=== PATIENT | female | born 1955 | race Caucasian/White ===

== ENCOUNTER 2018-07-22 12:35 | Inpatient (IN) | payer MEDICAID ==
[~2018-07-22] VITALS: Ht 165.1 cm; Wt 90.6 kg
[2018-07-22] MEDS ORDERED: LORazepam 1MG TABLET PO ONE (13:00)
[2018-07-22] MEDS ORDERED: SODIUM CHLORIDE FLUSH 10ML SYR IVF ONE (13:00)
[2018-07-22 13:47] LABS: MEAN CORPUSCULAR HEMOGLOBIN 21.9 pg (27.0-34.8); MEAN CORPUSCULAR VOLUME 70.7 fL (80-100); PLATELET COUNT 341 x10^3/uL (130-400); RED BLOOD COUNT 4.25 x10^6/uL (3.82-5.3); RED CELL DISTRIBUTION WIDTH 22.7 % (9.6-15.2)
[2018-07-22 13:50] LABS: ANION GAP 8 mmol/L (5-15); CALCIUM 8.1 mg/dL (8.5-10.1); CHLORIDE 108 mmol/L (98-107); SALICYLATE LEVEL < 1.7 mg/dL (2.8-20.0)
[2018-07-22] MEDS ORDERED: LORazepam 1MG TABLET ONE (13:58)
[2018-07-22 13:59] LABS: ACETAMINOPHEN < 2 mcg/mL (10-30); ALANINE AMINOTRANSFERASE 52 U/L (12-78); ALKALINE PHOSPHATASE 107 U/L (45-117); BILIRUBIN,TOTAL 1.6 mg/dL (0.2-1.0); CREATININE 0.87 mg/dL (0.55-1.02); TOTAL PROTEIN 6.1 g/dL (6.4-8.2)
--- NOTE | 2018-07-22 14:03 | NUR ---
FAMILY AT BEDSIDE. ASSISTED TO COMMODE
--- NOTE | 2018-07-22 14:10 | NUR ---
pt provided lunch tray. sitting on commode with chair down to eat off [employer]. family remain at bedside with call light
[2018-07-22 14:15] LABS: BASOPHILS # (AUTO) 0.01 x10^3/uL (0-0.1); BASOPHILS % (AUTO) 0 % (0-1); EOSINOPHILS % (AUTO) 1 % (1-7); LYMPHOCYTES # (AUTO) 0.89 x10^3/uL (1-3.4); LYMPHOCYTES % (AUTO) 9 % (22-44); MD MORPH REVIEW ONLY; MONOCYTES # (AUTO) 1.04 x10^3/uL (0.2-0.8); MONOCYTES % (AUTO) 11 % (2-9); NEUTROPHILS # (AUTO) 7.37 x10^3/uL (1.8-6.8); NEUTROPHILS % (AUTO) 78 % (42-75)
[2018-07-22 14:17] LABS: ANISOCYTOSIS 1+
[2018-07-22 14:18] LABS: OVALOCYTES 1+; POLYCHROMASIA 1+
[2018-07-22 14:19] LABS: HYPOCHROMIA 1+
[2018-07-22 14:20] LABS: <PLATELET ESTIMATE> ADEQUATE; <PLT MORPHOLOGY> NORMAL PLT MORPH
[2018-07-22 14:21] LABS: SCHISTOCYTES 1+
[2018-07-22 14:35] LABS: TROPONIN I 0.023 ng/mL (0.000-0.045)
[2018-07-22 14:55] LABS: MICROSCOPIC NOT IND
[2018-07-22 14:57] LABS: CULTURE INDICATED? NO
--- NOTE | 2018-07-22 15:00 | NUR ---
BREAK RN: PT TAKEN TO CT AT THIS TIME.
[2018-07-22 15:06] LABS: AMPHETAMINE SCREEN, URINE Positive (Negative); BARBITURATE SCREEN, URINE Negative (Negative); BENZODIAZEPINE SCREEN, URINE Negative (Negative); CANNABINOID SCREEN, URINE Negative (Negative); COCAINE SCREEN, URINE Negative (Negative); METHADONE SCREEN, URINE Negative (Negative); OPIATE SCREEN, URINE Negative (Negative)
[2018-07-22] MEDS ORDERED: LORazepam 2 MG/ML, 1ML IVPush ONE (16:00)
[2018-07-22] MEDS ORDERED: KETOROLAC 30 MG/1 ML IVPush ONE (16:00)
--- NOTE | 2018-07-22 16:13 | NUR ---
HOSPITALIST AT BEDSIDE EXAMINING PT. PT SITTING IN CHAIR AT THIS TIME
[2018-07-22] MEDS ORDERED: OXYcodone IR 5MG TABLET PO PRN (16:30)
[2018-07-22] MEDS ORDERED: GABAPENTIN 300 MG CAPSULE PO PRN (16:30)
[2018-07-22] MEDS: LIDODERM 5% PATCH TD SCH (16:30)
[2018-07-22] MEDS ORDERED: morphine SULFATE 10 MG/ML, 1ML IVPush PRN (16:30)
[2018-07-22] MEDS ORDERED: LORazepam 2 MG/ML, 1ML IVPush PRN (16:30)
[2018-07-22] MEDS ORDERED: KETOROLAC 30 MG/1 ML ONE (16:41)
[2018-07-22] MEDS ORDERED: ENOXAPARIN 40 MG/0.4 ML ONE (16:41)
[2018-07-22] MEDS ORDERED: FUROSEMIDE 40 MG/4 ML ONE (16:41)
[2018-07-22] MEDS ORDERED: LIDODERM 5% PATCH TD ONE (16:41)
[2018-07-22] MEDS ORDERED: LORazepam 2 MG/ML, 1ML ONE (16:42)
[2018-07-22] MEDS: FUROSEMIDE 40 MG/4 ML IV SCH (16:56)
[2018-07-22] MEDS: ENOXAPARIN 40 MG/0.4 ML SQ SCH (17:02)
--- NOTE | 2018-07-22 17:05 | NUR ---
SECURITY AT BEDSIDE TO BE SITTING WITH PT. PT LYING IN GURNEY ON RIGHT SIDE. MEDICATED PER ORDERS FOR PAIN.
[2018-07-22 17:17] LABS: TROPONIN I 0.028 ng/mL (0.000-0.045)
[2018-07-22] MEDS ORDERED: METOPROLOL TARTRATE 50 MG TABLET PO SCH (18:00)
[2018-07-22 18:14] VITALS: BP 102/69
[2018-07-22] MEDS ORDERED: LISI-167 PO (18:21)
[2018-07-22] MEDS ORDERED: FURO40TA6 PO (18:21)
[2018-07-22] MEDS ORDERED: SPIR25TA PO (18:21)
[2018-07-22] MEDS ORDERED: POTA20TA14 PO (18:21)
[2018-07-22] MEDS ORDERED: METO-93 PO (18:22)
[2018-07-22 18:38] VITALS: BP 100/69
[2018-07-22 19:46] LABS: TROPONIN I 0.025 ng/mL (0.000-0.045)
[2018-07-23] VITALS: BP 108/62
[2018-07-23 05:16] LABS: ANION GAP 8 mmol/L (5-15); CALCIUM 7.8 mg/dL (8.5-10.1); CHLORIDE 107 mmol/L (98-107); CREATININE 0.71 mg/dL (0.55-1.02)
[2018-07-23 05:24] LABS: MEAN CORPUSCULAR HEMOGLOBIN 21.8 pg (27.0-34.8); MEAN CORPUSCULAR HGB CONC 31.2 g/dL (32.4-35.8); MEAN CORPUSCULAR VOLUME 69.8 fL (80-100); MEAN PLATELET VOLUME 8.1 fL (7.4-10.4); PLATELET COUNT 299 x10^3/uL (130-400); RED BLOOD COUNT 3.92 x10^6/uL (3.82-5.3); RED CELL DISTRIBUTION WIDTH 22.2 % (9.6-15.2)
[2018-07-23] MEDS ORDERED: METOPROLOL SUCCINATE 50 MG TAB.ER.24H PO SCH (06:00)
[2018-07-23 06:03] LABS: BASOPHILS # (AUTO) 0.03 x10^3/uL (0-0.1); BASOPHILS % (AUTO) 0 % (0-1); EOSINOPHILS % (AUTO) 2 % (1-7); LYMPHOCYTES # (AUTO) 1.49 x10^3/uL (1-3.4); LYMPHOCYTES % (AUTO) 17 % (22-44); MD SCAN; MONOCYTES % (AUTO) 13 % (2-9); NEUTROPHILS # (AUTO) 5.91 x10^3/uL (1.8-6.8); NEUTROPHILS % (AUTO) 68 % (42-75)
[2018-07-23 06:50] VITALS: BP 112/78
[2018-07-23] MEDS: FUROSEMIDE 40 MG/4 ML IV SCH ×2 (08:33→17:42)
[2018-07-23] MEDS: ACETAMINOPHEN 325 MG TABLET PO PRN ×3 (08:35→13:04)
[2018-07-23] MEDS: SPIRONOLACTONE 25 MG TABLET PO SCH (08:59)
[2018-07-23] MEDS: IRON SUCROSE COMPLEX 100MG/5ML IV SCH (10:29)
[2018-07-23 12:00] VITALS: BP 96/64
[2018-07-23] MEDS: LIDODERM 5% PATCH TD SCH (17:42)
[2018-07-23] MEDS: ENOXAPARIN 40 MG/0.4 ML SQ SCH (17:42)
[2018-07-23 17:48] VITALS: BP 100/69
[2018-07-23] MEDS: KETOROLAC 30 MG/1 ML IVPush PRN (17:53)
[2018-07-23 20:21] VITALS: BP 91/63
[2018-07-23] MEDS: CALCIUM CARBONATE 500 MG TAB.CHEW PO PRN (23:52)
[2018-07-24 03:59] VITALS: BP 93/61
[2018-07-24] MEDS ORDERED: LIDODERM REMOVE PATCH NOTE XX SCH (04:30)
[2018-07-24] MEDS: LIDODERM REMOVE PATCH NOTE XX SCH ×2 (04:30→14:48)
[2018-07-24 05:32] VITALS: BP 97/68
[2018-07-24] MEDS: ACETAMINOPHEN 325 MG TABLET PO PRN ×2 (05:39→13:16)
[2018-07-24] MEDS: METOPROLOL SUCCINATE 25 MG TAB.ER.24H PO SCH (05:40)
[2018-07-24 06:46] VITALS: BP 110/71
[2018-07-24] MEDS: SPIRONOLACTONE 25 MG TABLET PO SCH (07:37)
[2018-07-24] MEDS: LISINOPRIL 5 MG TABLET PO SCH (07:37)
[2018-07-24] MEDS: FUROSEMIDE 40 MG/4 ML IV SCH (07:37)
[2018-07-24 09:16] LABS: MEAN CORPUSCULAR HEMOGLOBIN 22.6 pg (27.0-34.8); MEAN CORPUSCULAR HGB CONC 32.1 g/dL (32.4-35.8); MEAN CORPUSCULAR VOLUME 70.5 fL (80-100); PLATELET COUNT 316 x10^3/uL (130-400); RED BLOOD COUNT 4.02 x10^6/uL (3.82-5.3); RED CELL DISTRIBUTION WIDTH 23.5 % (9.6-15.2)
[2018-07-24 09:23] LABS: ANION GAP 7 mmol/L (5-15); CALCIUM 7.9 mg/dL (8.5-10.1); CHLORIDE 106 mmol/L (98-107)
[2018-07-24 09:24] LABS: CREATININE 0.87 mg/dL (0.55-1.02)
[2018-07-24 09:56] LABS: BASOPHILS % (AUTO) 0 % (0-1); EOSINOPHILS # (AUTO) 0.25 x10^3/uL (0-0.4); EOSINOPHILS % (AUTO) 3 % (1-7); LYMPHOCYTES # (AUTO) 1.09 x10^3/uL (1-3.4); LYMPHOCYTES % (AUTO) 13 % (22-44); MD MORPH REVIEW ONLY; MONOCYTES # (AUTO) 0.47 x10^3/uL (0.2-0.8); MONOCYTES % (AUTO) 6 % (2-9); NEUTROPHILS # (AUTO) 6.59 x10^3/uL (1.8-6.8); NEUTROPHILS % (AUTO) 79 % (42-75)
[2018-07-24 09:57] LABS: ANISOCYTOSIS 1+; MICROCYTOSIS 1+; OVALOCYTES 1+; POLYCHROMASIA 1+
[2018-07-24 09:58] LABS: <PLATELET ESTIMATE> ADEQUATE; <PLT MORPHOLOGY> NORMAL PLT MORPH; HYPOCHROMIA 1+; SCHISTOCYTES 1+
[2018-07-24] MEDS ORDERED: OLANZAPINE 5 MG TABLET PO PRN (10:30)
[2018-07-24] MEDS ORDERED: OLANZAPINE 10 MG INJ IM PRN (10:30)
[2018-07-24 12:19] VITALS: BP 100/68
[2018-07-24] MEDS: IRON SUCROSE COMPLEX 100MG/5ML IV SCH (14:46)
[2018-07-24] MEDS: ENOXAPARIN 40 MG/0.4 ML SQ SCH (14:46)
[2018-07-24] MEDS: KETOROLAC 30 MG/1 ML IVPush PRN (14:46)
[2018-07-24] MEDS: LIDODERM 5% PATCH TD SCH (14:47)
[2018-07-24] MEDS ORDERED: ONDANSETRON ODT 4 MG ONE (15:29)
[2018-07-24] MEDS: ONDANSETRON ODT 4 MG PO PRN (15:31)
[2018-07-24 19:28] VITALS: BP 104/71
[2018-07-24] MEDS: CALCIUM CARBONATE 500 MG TAB.CHEW PO PRN (21:12)
[2018-07-25 00:20] VITALS: BP 105/70
[2018-07-25] MEDS: CALCIUM CARBONATE 500 MG TAB.CHEW PO PRN (03:40)
[2018-07-25 06:16] LABS: ANION GAP 8 mmol/L (5-15); CALCIUM 8.3 mg/dL (8.5-10.1); CHLORIDE 105 mmol/L (98-107)
[2018-07-25 06:21] LABS: CREATININE 0.74 mg/dL (0.55-1.02)
[2018-07-25] MEDS: METOPROLOL SUCCINATE 25 MG TAB.ER.24H PO SCH (06:35)
[2018-07-25 06:53] VITALS: BP 109/72
[2018-07-25] MEDS: IRON SUCROSE COMPLEX 100MG/5ML IV SCH (08:56)
[2018-07-25] MEDS ORDERED: FUROSEMIDE 40 MG/4 ML IV SCH (09:00)
[2018-07-25] MEDS: SPIRONOLACTONE 25 MG TABLET PO SCH (09:44)
[2018-07-25] MEDS: LISINOPRIL 5 MG TABLET PO SCH (09:44)
[2018-07-25 14:45] VITALS: BP 97/65
[2018-07-25] MEDS: LIDODERM REMOVE PATCH NOTE XX SCH (16:30)
[2018-07-25] MEDS: ENOXAPARIN 40 MG/0.4 ML SQ SCH (17:05)
[2018-07-25] MEDS: FERROUS GLUCONATE 324 MG TABLET PO SCH (17:05)
[2018-07-25] MEDS: LIDODERM 5% PATCH TD SCH (17:05)
[2018-07-25 18:30] VITALS: BP 106/72
[2018-07-25] MEDS: ONDANSETRON ODT 4 MG PO PRN (19:44)
[2018-07-25] MEDS: FUROSEMIDE 40 MG TABLET PO SCH (21:20)
[2018-07-26] MEDS: ACETAMINOPHEN 325 MG TABLET PO PRN ×2 (00:52→06:04)
[2018-07-26 00:58] VITALS: BP 100/66
[2018-07-26] MEDS: LIDODERM REMOVE PATCH NOTE XX SCH (04:37)
[2018-07-26] MEDS: METOPROLOL SUCCINATE 25 MG TAB.ER.24H PO SCH (06:04)
[2018-07-26 07:22] VITALS: BP 92/56
[2018-07-26] MEDS: LISINOPRIL 5 MG TABLET PO SCH (09:00)
[2018-07-26] MEDS ORDERED: FUROSEMIDE 40 MG TABLET PO SCH (09:00)
[2018-07-26] MEDS: FUROSEMIDE 40 MG TABLET PO SCH (09:34)
[2018-07-26] MEDS ORDERED: KETOROLAC 30 MG/1 ML ONE (09:42)
[2018-07-26] MEDS: FERROUS GLUCONATE 324 MG TABLET PO SCH (09:44)
[2018-07-26] MEDS: SPIRONOLACTONE 25 MG TABLET PO SCH (09:44)
[2018-07-26] MEDS ORDERED: POLYETHYLENE GLYCOL 17 GM PACKET PO SCH (10:00)
[2018-07-26] MEDS ORDERED: BISACODYL 10 MG SUPP PR PRN (10:00)
[2018-07-26] MEDS ORDERED: KETOROLAC 30 MG/1 ML IM PRN (10:00)
[2018-07-26] MEDS ORDERED: DOCUSATE 100 MG CAPSULE PO SCH (10:00)
[2018-07-26] MEDS ORDERED: DOCU-131 PO (13:30)
[2018-07-26] MEDS ORDERED: KETO30VI27 IM (13:30)
[2018-07-26] MEDS ORDERED: LIDO700A20 TD (13:30)
[2018-07-26] MEDS ORDERED: GABA300C10 PO (13:30)
[2018-07-26] MEDS ORDERED: FERR325T16 PO (13:30)
[2018-07-26] MEDS ORDERED: Lidoderm Remove Patch XX (13:30)
[2018-07-26] MEDS ORDERED: CALC200T24 PO (13:30)
[2018-07-26] MEDS ORDERED: OLAN10VI2 IM (13:30)
[2018-07-26] MEDS ORDERED: POLY17PO5 PO (13:30)
[2018-07-26] MEDS ORDERED: OLAN5TAB9 PO (13:30)
[2018-07-26] MEDS ORDERED: ONDA4TAB13 PO (13:30)
[2018-07-26] MEDS ORDERED: TRAM50TA2 PO (13:30)
[2018-07-26] MEDS ORDERED: METO25TA91 PO (13:30)
[2018-07-26] MEDS ORDERED: LISI5TAB7 PO (13:30)
== END 2018-07-26 14:10 | DRG 291 ==
LOC: ED 15:47 → EDIP 15:48 → ED 16:15 → 5SO 18:11 → 3NE 07-25 15:35
PROVIDERS: ADMIT Internal Medicine; ATTEND Internal Medicine
DX: I50.23 Acute on chronic systolic (congestive) heart failure (principal); G92 Toxic encephalopathy; S22.42XA Multiple fractures of ribs, left side, initial encounter for closed fracture; R45.851 Suicidal ideations; F31.9 Bipolar disorder, unspecified; F22 Delusional disorders; D50.9 Iron deficiency anemia, unspecified; F15.129 Other stimulant abuse with intoxication, unspecified; I45.81 Long QT syndrome; W18.39XA Other fall on same level, initial encounter; E03.9 Hypothyroidism, unspecified; E66.01 Morbid (severe) obesity due to excess calories; Z91.19 Patient's noncompliance with other medical treatment and regimen; Z68.33 Body mass index [BMI] 33.0-33.9, adult; Y93.89 Activity, other specified; Y92.89 Other specified places as the place of occurrence of the external cause; Z91.14 Patient's other noncompliance with medication regimen; Z80.1 Family history of malignant neoplasm of trachea, bronchus and lung; Z90.710 Acquired absence of both cervix and uterus; Z98.84 Bariatric surgery status; Z90.49 Acquired absence of other specified parts of digestive tract; Y99.8 Other external cause status; Z79.899 Other long term (current) drug therapy; Z87.891 Personal history of nicotine dependence
CPT/HCPCS: 36415; 70450; 71045; 71250; 80048; 80053; 80307; 81003; 82728; 83540; 83550; 83735; 83880; 84443; 84466; 84484; 85025; 93005; 96374; 96375; 99285; G0378; J1650; J1756; J1885; J1940; Q0162; J2060

== ENCOUNTER 2018-07-26 11:50 | Inpatient (IN) | payer MEDICAID ==
[~2018-07-26] VITALS: Ht 165.1 cm; Wt 91.1 kg
[~2018-07-26 11:50] MED LIST: FURO40TA6 PO; LISI-167 PO; METO-93 PO; POTA20TA14 PO; SPIR25TA PO
[2018-07-26] MEDS ORDERED: BISACODYL 10 MG SUPP PR PRN (12:30)
[2018-07-26] MEDS ORDERED: POLYETHYLENE GLYCOL 17 GM PACKET PO PRN (12:30)
[2018-07-26] MEDS ORDERED: DOCUSATE 100 MG CAPSULE PO PRN (12:30)
[2018-07-26 13:25] VITALS: BP 100/64
[2018-07-26] MEDS ORDERED: LIDO700A20 TD (13:30)
[2018-07-26] MEDS ORDERED: FERR325T16 PO (13:30)
[2018-07-26] MEDS ORDERED: OLAN10VI2 IM (13:30)
[2018-07-26] MEDS ORDERED: Lidoderm Remove Patch XX (13:30)
[2018-07-26] MEDS ORDERED: DOCU-131 PO (13:30)
[2018-07-26] MEDS ORDERED: METO25TA91 PO (13:30)
[2018-07-26] MEDS ORDERED: ONDA4TAB13 PO (13:30)
[2018-07-26] MEDS ORDERED: OLAN5TAB9 PO (13:30)
[2018-07-26] MEDS ORDERED: TRAM50TA2 PO (13:30)
[2018-07-26] MEDS ORDERED: LISI5TAB7 PO (13:30)
[2018-07-26] MEDS ORDERED: KETO30VI27 IM (13:30)
[2018-07-26] MEDS ORDERED: CALC200T24 PO (13:30)
[2018-07-26] MEDS ORDERED: GABA300C10 PO (13:30)
[2018-07-26] MEDS ORDERED: POLY17PO5 PO (13:30)
[2018-07-26] MEDS ORDERED: PLEASE ENTER HEIGHT AND WEIGHT MC SCH (14:30)
[2018-07-26 14:44] VITALS: BP 100/64
[2018-07-26] MEDS: ACETAMINOPHEN 325 MG TABLET PO PRN (15:53)
[2018-07-26] MEDS ORDERED: GABAPENTIN 300 MG CAPSULE PO PRN (18:30)
[2018-07-26] MEDS ORDERED: ONDANSETRON ODT 4 MG PO PRN (18:30)
[2018-07-26] MEDS ORDERED: KETOROLAC 30 MG/1 ML IM PRN (18:30)
[2018-07-26 19:36] VITALS: BP 92/62
[2018-07-26] MEDS: FERROUS GLUCONATE 324 MG TABLET PO SCH (20:10)
[2018-07-26] MEDS: FUROSEMIDE 40 MG TABLET PO SCH (20:11)
[2018-07-26] MEDS: DOCUSATE 100 MG CAPSULE PO SCH (20:11)
[2018-07-26] MEDS: LIDODERM 5% PATCH TD SCH (20:27)
[2018-07-26] MEDS: [UNRECOGNIZED DRUG - REMARK] XX SCH (20:33)
[2018-07-27 05:49] VITALS: BP 109/75
[2018-07-27] MEDS: METOPROLOL SUCCINATE 25 MG TAB.ER.24H PO SCH (05:53)
[2018-07-27 07:24] VITALS: BP 108/68
[2018-07-27 07:25] LABS: CHOL/HDL RATIO 3.1; FREE T4 (FREE THYROXINE) 1.1 ng/dL (0.76-1.46); LDL/HDL RATIO 1.6 (0.5-3.0); THYROID STIMULATING HORMONE 1.89 mIU/L (0.358-3.740)
[2018-07-27] MEDS: KETOROLAC 30 MG/1 ML IM PRN (08:52)
[2018-07-27] MEDS: [UNRECOGNIZED DRUG - REMARK] XX SCH ×2 (09:50→19:40)
[2018-07-27] MEDS: LISINOPRIL 5 MG TABLET PO SCH (10:12)
[2018-07-27] MEDS: FUROSEMIDE 40 MG TABLET PO SCH ×2 (10:12→20:16)
[2018-07-27] MEDS: FERROUS GLUCONATE 324 MG TABLET PO SCH ×2 (10:12→17:12)
[2018-07-27] MEDS: SPIRONOLACTONE 25 MG TABLET PO SCH (10:12)
[2018-07-27] MEDS: DOCUSATE 100 MG CAPSULE PO SCH ×2 (10:12→20:16)
[2018-07-27] MEDS: CALCIUM CARBONATE 500 MG TAB.CHEW PO PRN (17:12)
[2018-07-27 19:35] VITALS: BP 97/63
[2018-07-27] MEDS: ONDANSETRON ODT 4 MG PO PRN (19:37)
[2018-07-27] MEDS: LIDODERM 5% PATCH TD SCH ×2 (20:16→20:17)
[2018-07-27] MEDS: QUETIAPINE 100MG TABLET PO SCH (21:02)
[2018-07-28] MEDS: KETOROLAC 30 MG/1 ML IM PRN ×2 (00:16→09:59)
[2018-07-28] MEDS: ONDANSETRON ODT 4 MG PO PRN ×2 (00:30→20:13)
[2018-07-28] MEDS: METOPROLOL SUCCINATE 25 MG TAB.ER.24H PO SCH (06:00)
[2018-07-28 06:32] VITALS: BP 96/56
[2018-07-28 07:21] VITALS: BP 92/59
[2018-07-28] MEDS: [UNRECOGNIZED DRUG - REMARK] XX SCH ×2 (09:00→20:14)
[2018-07-28] MEDS: LISINOPRIL 5 MG TABLET PO SCH (09:00)
[2018-07-28] MEDS: SPIRONOLACTONE 25 MG TABLET PO SCH (09:58)
[2018-07-28] MEDS: FUROSEMIDE 40 MG TABLET PO SCH ×2 (09:58→20:13)
[2018-07-28] MEDS: FERROUS GLUCONATE 324 MG TABLET PO SCH ×2 (09:58→16:28)
[2018-07-28] MEDS: DOCUSATE 100 MG CAPSULE PO SCH ×2 (09:58→20:12)
[2018-07-28] MEDS: CALCIUM CARBONATE 500 MG TAB.CHEW PO PRN ×2 (12:32→16:28)
[2018-07-28 13:03] VITALS: BP 90/59
[2018-07-28 19:38] VITALS: BP 87/57
[2018-07-28] MEDS: LIDODERM 5% PATCH TD SCH (20:12)
[2018-07-28] MEDS: QUETIAPINE 100MG TABLET PO SCH (20:13)
[2018-07-28 20:27] VITALS: BP 111/71
[2018-07-29] MEDS: ONDANSETRON ODT 4 MG PO PRN (03:45)
[2018-07-29] MEDS ORDERED: METOPROLOL SUCCINATE 25 MG TAB.ER.24H PO SCH (06:00)
[2018-07-29 06:11] VITALS: BP 98/58
[2018-07-29 07:24] VITALS: BP 98/66
[2018-07-29] MEDS: ACETAMINOPHEN 325 MG TABLET PO PRN (07:47)
[2018-07-29] MEDS: [UNRECOGNIZED DRUG - REMARK] XX SCH ×2 (09:00→20:09)
[2018-07-29] MEDS: LISINOPRIL 5 MG TABLET PO SCH (09:00)
[2018-07-29] MEDS: DOCUSATE 100 MG CAPSULE PO SCH ×2 (09:00→20:09)
[2018-07-29] MEDS: FERROUS GLUCONATE 324 MG TABLET PO SCH ×2 (09:35→17:02)
[2018-07-29] MEDS: FUROSEMIDE 40 MG TABLET PO SCH ×2 (09:35→20:05)
[2018-07-29] MEDS: SPIRONOLACTONE 25 MG TABLET PO SCH (09:35)
[2018-07-29] MEDS: CALCIUM CARBONATE 500 MG TAB.CHEW PO PRN (17:03)
[2018-07-29] MEDS: KETOROLAC 30 MG/1 ML IM PRN (17:41)
[2018-07-29 19:35] VITALS: BP 108/72
[2018-07-29] MEDS: QUETIAPINE 100MG TABLET PO SCH (20:05)
[2018-07-29] MEDS: LIDODERM 5% PATCH TD SCH (20:08)
[2018-07-30 07:28] VITALS: BP 123/81
[2018-07-30] MEDS: SPIRONOLACTONE 25 MG TABLET PO SCH (08:26)
[2018-07-30] MEDS: FUROSEMIDE 40 MG TABLET PO SCH ×2 (08:26→20:20)
[2018-07-30] MEDS: FERROUS GLUCONATE 324 MG TABLET PO SCH ×2 (08:27→17:17)
[2018-07-30] MEDS: LISINOPRIL 5 MG TABLET PO SCH (08:27)
[2018-07-30] MEDS: METOPROLOL SUCCINATE 25 MG TAB.ER.24H PO SCH (08:27)
[2018-07-30] MEDS: DOCUSATE 100 MG CAPSULE PO SCH ×2 (08:31→20:21)
[2018-07-30] MEDS: [UNRECOGNIZED DRUG - REMARK] XX SCH ×2 (10:00→20:26)
[2018-07-30] MEDS: CALCIUM CARBONATE 500 MG TAB.CHEW PO PRN (19:28)
[2018-07-30 19:38] VITALS: BP 100/69
[2018-07-30] MEDS: QUETIAPINE 100MG TABLET PO SCH (20:21)
[2018-07-30] MEDS: LIDODERM 5% PATCH TD SCH (20:21)
[2018-07-31] MEDS: CALCIUM CARBONATE 500 MG TAB.CHEW PO PRN (05:43)
[2018-07-31 07:25] VITALS: BP 112/77
[2018-07-31] MEDS: FERROUS GLUCONATE 324 MG TABLET PO SCH ×2 (09:40→16:38)
[2018-07-31] MEDS: FUROSEMIDE 40 MG TABLET PO SCH ×2 (09:40→20:11)
[2018-07-31] MEDS: SPIRONOLACTONE 25 MG TABLET PO SCH (09:41)
[2018-07-31] MEDS: METOPROLOL SUCCINATE 25 MG TAB.ER.24H PO SCH (09:41)
[2018-07-31] MEDS: LISINOPRIL 5 MG TABLET PO SCH (09:41)
[2018-07-31] MEDS: [UNRECOGNIZED DRUG - REMARK] XX SCH ×2 (09:46→21:00)
[2018-07-31] MEDS: DOCUSATE 100 MG CAPSULE PO SCH ×2 (09:46→20:11)
[2018-07-31] MEDS ORDERED: QUET100T PO (17:54)
[2018-07-31 19:47] VITALS: BP 101/64
[2018-07-31] MEDS: LIDODERM 5% PATCH TD SCH (20:10)
[2018-07-31] MEDS: QUETIAPINE 100MG TABLET PO SCH (20:11)
[2018-08-01 07:23] VITALS: BP 116/83
[2018-08-01] MEDS: LISINOPRIL 5 MG TABLET PO SCH (08:55)
[2018-08-01] MEDS: FERROUS GLUCONATE 324 MG TABLET PO SCH (08:55)
[2018-08-01] MEDS: SPIRONOLACTONE 25 MG TABLET PO SCH (08:55)
[2018-08-01] MEDS: METOPROLOL SUCCINATE 25 MG TAB.ER.24H PO SCH (08:56)
[2018-08-01] MEDS: DOCUSATE 100 MG CAPSULE PO SCH (08:56)
[2018-08-01] MEDS: FUROSEMIDE 40 MG TABLET PO SCH (08:56)
[2018-08-01] MEDS: [UNRECOGNIZED DRUG - REMARK] XX SCH (08:57)
== END 2018-08-01 15:30 | DRG 885 ==
LOC: 3E 14:18
PROVIDERS: ADMIT Psychiatry & Neurology Psychosomatic Medicine; ATTEND Psychiatry & Neurology Psychosomatic Medicine
DX: F31.63 Bipolar disorder, current episode mixed, severe, without psychotic features (principal); I50.22 Chronic systolic (congestive) heart failure; D50.9 Iron deficiency anemia, unspecified; F15.10 Other stimulant abuse, uncomplicated; E03.9 Hypothyroidism, unspecified; E66.01 Morbid (severe) obesity due to excess calories; Z68.33 Body mass index [BMI] 33.0-33.9, adult; Z87.891 Personal history of nicotine dependence; Z80.1 Family history of malignant neoplasm of trachea, bronchus and lung; Z90.710 Acquired absence of both cervix and uterus; Z98.84 Bariatric surgery status; Z90.49 Acquired absence of other specified parts of digestive tract; Z88.5 Allergy status to narcotic agent
CPT/HCPCS: 36415; 80061; 82140; 82607; 84439; 84443; 86592; J1885; Q0162; 92522-GN